=== PATIENT | female | born 1945 | race Caucasian/White ===

== ENCOUNTER 2025-05-06 13:19 | Observation (INO) | payer MEDICARE, SELFPAY ==
--- NOTE | ~2025-05-06 | XR_ITS ---
EXAMINATION: XR chest 2V Exam Date/Time: 05/06/2025 14:00 CDT HISTORY: chest pain Comparison: 04/05/2018. RESULT: Lines, tubes, and devices: Left chest pacer with intact leads. Lungs and pleura: Clear. Cardiomediastinal silhouette: Stable. Other: No acute osseous or upper abdominal finding. IMPRESSION: No acute cardiopulmonary process. Reviewed, dictated and finalized at location K.
--- NOTE | 2025-05-06 13:20 | ECG_ITS ---
Test Date: 2025-05-06 13:23:33 Measurements Intervals [place] Rate: 62 P: 40 CA: 150 QRS: -68 QRSD: 131 T: 132 QT: 443 QTc: 452 Interpretive Statements ATRIAL SENSE- ELECTRONIC VENTRICULAR PACEMAKER BASELINE ARTIFACT- I, II, AVR, AVF NO FURTHER INTERPRETATION IS POSSIBLE ATYPICAL ECG No previous ECG available for comparison Electronically Signed On 05-06-2025 16:21:47 CDT by Zachariah Jurado D.O.
--- OUTSIDE RECORDS SUMMARY | 2025-05-06 13:21 | XMS_ITS | Encounter Summary ---
Author Organization [facility] Facility Care Team Providers Care Counter Dish Carrier Name Role Phone Deshawn Mariano MD Primary Care Provider [phone] Encounter Details Date Type Department Care Team (Latest Contact Info) Description 08/12/2017 Orders Only [facility] CLINCONV ProviderSang MD [address] [place] [address] Social History Tobacco Use Types Packs/Day Years Used Date Smoking Tobacco: Former Cigarettes Q uit: 10/04/1971 Alcohol Use Standard Drinks/Week Comments Yes 0 (1 standard drink = 0.6 oz pur e alcohol) Comments Unknown Sex and Gender Information Value Date Recorded Sex Assigned at Not on file Legal Sex Female 9:53 AM MEDICAL RECORDS DIRECTOR Gender Identity Not on file Sexual Orientation Not on file documented as of this encounter Plan of Treatment Not on file documented as of this encounter Procedures Procedure Name Priority Date/Time Associated Diagnosis Comments CARDIOLOGY REPORT 01/21/2018 12: 00 AM CDT documented in this encounter Results * CARDIOLOGY REPORT (01/21/2018 12:00 AM CDT) Anatomical Region Laterality Modality Other Narrative 01/21/2018 12:00 AM CDT Ordered by an unspecified provider. Historical Provider [facility] ROSEMARY OLIVARES Final Result documented in this encounter Visit Diagnoses Not on filedocumented in this encounter Care Teams Counter Dish Carrier Relationship Specialty Start Date End Date Deshawn Mariano MD PCP - General 01/01/17 documented as of this encounter
--- OUTSIDE RECORDS SUMMARY | 2025-05-06 13:21 | XMS_ITS | Encounter Summary ---
Author Organization [facility] Facility Care Team Providers Care Nurses' Association Executive Director Name Role Phone Deshawn Mariano MD Primary Care Provider [phone] Deshawn Mariano MD Primary Care Provider [phone] Encounter Details Date Type Department Care Team (Latest Contact Info) Description 08/12/2016 Orders Only [facility] CLINCONV ProviderSang MD [address] [place] [address] Social History Tobacco Use Types Packs/Day Years Used Date Smoking Tobacco: Former Cigarettes Q uit: 10/04/1971 Alcohol Use Standard Drinks/Week Comments Yes 0 (1 standard drink = 0.6 oz pur e alcohol) Comments Unknown Sex and Gender Information Value Date Recorded Sex Assigned at Not on file Legal Sex Female 9:53 AM ELEMENTARY SCHOOL BAND DIRECTOR Gender Identity Not on file Sexual Orientation Not on file documented as of this encounter Plan of Treatment Not on file documented as of this encounter Procedures Procedure Name Priority Date/Time Associated Diagnosis Comments CARDIOLOGY REPORT 09/04/2016 12: 00 AM ELEMENTARY SCHOOL BAND DIRECTOR documented in this encounter Results * CARDIOLOGY REPORT (09/04/2016 12:00 AM ELEMENTARY SCHOOL BAND DIRECTOR) Anatomical Region Laterality Modality Other Narrative 09/04/2016 12:00 AM ELEMENTARY SCHOOL BAND DIRECTOR Ordered by an unspecified provider. Historical Provider [facility] ROSEMARY OLIVARES Final Result documented in this encounter Visit Diagnoses Not on filedocumented in this encounter Care Teams Nurses' Association Executive Director Relationship Specialty Start Date End Date Deshawn Mariano MD PCP - General 01/01/17 Deshawn Mariano MD PCP - General 05/30/13 12/31/16 documented as of this encounter
--- OUTSIDE RECORDS SUMMARY | 2025-05-06 13:21 | XMS_ITS | Encounter Summary ---
Author Organization [facility] Facility Care Team Providers Care Pulp Press Tender Name Role Phone Deshawn Mariano MD Primary Care Provider Encounter Details Date Type Department Care Team (Latest Contact Info) Description 04/05/2018 Orders Only [facility] CLINCONV ProviderSang MD [address] [place] [address] Social History Tobacco Use Types Packs/Day Years Used Date Smoking Tobacco: Former Cigarettes Q uit: 10/04/1971 Alcohol Use Standard Drinks/Week Comments Yes 0 (1 standard drink = 0.6 oz pur e alcohol) Comments Unknown Sex and Gender Information Value Date Recorded Sex Assigned at Not on file Legal Sex Female 9:53 AM MAINTENANCE SUPERVISOR MECHANICAL Gender Identity Not on file Sexual Orientation Not on file documented as of this encounter Plan of Treatment Not on file documented as of this encounter Procedures Procedure Name Priority Date/Time Associated Diagnosis Comments CARDIOLOGY REPORT 04/07/2018 12: 00 AM CDT documented in this encounter Results * CARDIOLOGY REPORT (04/07/2018 12:00 AM CDT) Anatomical Region Laterality Modality Other Narrative 04/07/2018 12:00 AM CDT Ordered by an unspecified provider. Historical Provider [facility] ROSEMARY OLIVARES Final Result documented in this encounter Visit Diagnoses Not on filedocumented in this encounter Care Teams Pulp Press Tender Relationship Specialty Start Date End Date Deshawn Mariano MD PCP - General 01/01/17 documented as of this encounter
--- OUTSIDE RECORDS SUMMARY | 2025-05-06 13:21 | XMS_ITS | Encounter Summary ---
Author Organization [facility] Facility Care Team Providers Care Cooker Operator Name Role Phone Deshawn Mariano MD Primary Care Provider Encounter Details Date Type Department Care Team (Latest Contact Info) Description 07/22/2017 Orders Only [facility] CLINCONV ProviderSang MD [address] [place] [address] Social History Tobacco Use Types Packs/Day Years Used Date Smoking Tobacco: Former Cigarettes Q uit: 10/04/1971 Alcohol Use Standard Drinks/Week Comments Yes 0 (1 standard drink = 0.6 oz pur e alcohol) Comments Unknown Sex and Gender Information Value Date Recorded Sex Assigned at Not on file Legal Sex Female 9:53 AM MARINE RIGGER Gender Identity Not on file Sexual Orientation Not on file documented as of this encounter Plan of Treatment Not on file documented as of this encounter Procedures Procedure Name Priority Date/Time Associated Diagnosis Comments CARDIOLOGY REPORT 07/22/2017 12: 00 AM CDT documented in this encounter Results * CARDIOLOGY REPORT (07/22/2017 12:00 AM CDT) Anatomical Region Laterality Modality Other Narrative 07/22/2017 12:00 AM CDT Ordered by an unspecified provider. Historical Provider [facility] ROSEMARY OLIVARES Final Result documented in this encounter Visit Diagnoses Not on filedocumented in this encounter Care Teams Cooker Operator Relationship Specialty Start Date End Date Deshawn Mariano MD PCP - General 01/01/17 documented as of this encounter
--- OUTSIDE RECORDS SUMMARY | 2025-05-06 13:21 | XMS_ITS | Clinical Summary ---
Author Organization [facility] at the [facility] Office Center Address [address] [place] [address] Care Team Providers Care Wood Flour Miller Name Role Phone Deshawn Mariano MD Primary Care Provider [phone] Allergies No known active allergies Medications levothyroxine (SYNTHROID) 50 mcg tablet take 1 tablet (50MCG) by oral route every day 0 01/12/2013 Active cholecalciferol (VITAMIN D-3) 2,000 unit tablet 1 tablet (2,000 Units total) daily Active rosuvastatin (CRESTOR) 40 mg tablet Take 1 tablet (40 mg total) by mouth Active aspirin 81 mg enteric coated tablet TAKE 1 TABLET BY MOUTH EVERY DAY 90 tablet 3 05/25/2022 Active carvediloL (COREG) 6.25 mg tabletIndication s:Chronic combined systolic and diastolic congestive heart failure (HCC) Take 1 tablet (6.25 mg total) by mouth 2 (two) times a day with meals 90 tablet 3 02/17/2024 Active empagliflozin (Jardiance) 10 mg tablet Take 1 tablet (10 mg total) by mouth daily 90 tablet 1 02/17/2024 Active furosemide (LASIX) 20 mg tabletIndication s:AV block, 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) Take 1 tablet (20 mg total) by mouth daily as needed (edema) 30 tablet 02/17/2024 Active Entresto 97-103 mg tablet TAKE 1 TABLET BY MOUTH TWICE DAILY 180 tablet 1 03/02/2024 Active Active Problems Problem Noted Date Diagnosed Date CKD (chronic kidney disease) stage 3, GFR 30-59 ml/min 02/17/2024 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 Patient thinks probably was taking in more salt around [place]. Will get recent labs Assessment & Plan (12/14/2019 3:43 PM CDT): Continue Lasix 20 mg daily Assessment & Plan (02/02/2019 1:52 PM CDT): Trace pedal edema. She can take Lasix daily till better OptiVol checked her device shows no significant pulmonary edema. Strongly encouraged dieting and weight loss Cardiac resynchronization th erapy pacemaker (BUSINESS APPLICATIONS MANAGER-P) in place 09/16/2016 Assessment & Plan (12/12/2020 1:16 PM GENERAL UTILITY WORKER): Check today shows normal function underlying rhythm sinus complete AV block no a pacing 100% V paced excellent lead function. Battery 2 years. Assessment & Plan (12/14/2019 3:42 PM CDT): Check today shows normal function. Underlying rhythm is sinus complete AV block. No a pacing 100% V paced. Excellent lead function. Battery 2 years. No arrhythmias. Assessment & Plan (02/02/2019 1:46 PM CDT): Check today shows normal function. Sinus with complete heart block no a pacing 100% V paced excellent lead function few short runs of nonsustained VT. Cardiomyopathy 08/18/2016 Assessment & Plan (12/14/2019 3:42 PM CDT): Improved with BUSINESS APPLICATIONS MANAGER. Continue Entresto. Assessment & Plan (02/02/2019 1:51 PM CDT): Resolved with BUSINESS APPLICATIONS MANAGER. Continue medications of Entresto and Lasix Double Entresto to approximately 50/ 50 mg AV block, 3rd degree 07/13/2016 Assessment & Plan (12/14/2019 3:42 PM CDT): BUSINESS APPLICATIONS MANAGER since 2015 Assessment & Plan (02/02/2019 1:45 PM CDT): Medtronic biventricular pacemaker placed September 2016 Notalgia 02/16/2014 Arthralgia of hip 02/16/2014 Resolved Problems Problem Noted Date Diagnosed Date Resolved Date Paroxysmal ventricular tachycardia 12/12/2020 06/24/2023 Assessment & Plan (12/12/2020 1:23 PM GENERAL UTILITY WORKER): Symptomatic short. EF improved. Check recent labs Afib ([facility]) 07/13/2016 07/03/2021 Assessment & Plan (12/12/2020 1:21 PM GENERAL UTILITY WORKER): No episodes. No indication for antiarrhythmics Assessment & Plan (12/14/2019 3:42 PM CDT): No episodes. No indication for antiarrhythmics or anticoagulants. Immunizations Immunization Administration Dates Next Due Pfizer SARS-CoV-2 Monovalent Vaccination (12+ Yrs) PURPLE 07/10/2021,11/18/2020,10/28/2020 Surgical History Surgery Date Site/Laterality Comments [place] ARTHRP ACETBLR/PROX FEM PROSTC AGRFT/ALGRFT Total Hip Replacement Left - (Added by TW Conv) CARDIAC PACEMAKER PLACEMENT Pacemaker Placement - (Added by TW Conv) Medical History Medical History Date Comments A-fib ([facility]) AV block, 3rd degree ([facility]) Cardiac pacemaker BiV CHF (congestive heart failure) ([facility]) Family History Medical History Relation Name Comments Cancer Father Jumper Family history of malignant neoplasm - (Added by TW Conv) Coronary artery disease Mother Klaus Jones nargrace Artery Bypass Graft; Heart attack Mother Klaus Myocardial Infa rction; Relation Name Status Comments Father Loraineer Mother Klaus Alive Social History Tobacco Use Types Packs/Day Years Used Date Smoking Tobacco: Former Cigarettes Q uit: 10/04/1971 Smokeless Tobacco: Never Tobacco Cessation:Counseling Given: Not Answered Alcohol Use Standard Drinks/Week Comments Yes 0 (1 standard drink = 0.6 oz pur e alcohol) AUDIT-C Answer Date Recorded Q1: How often do you have a drink containing alc ohol? 2-4 times a month 03/16/2023 Q2: How many drinks containi ng alcohol do you have on a typical day when you are drinking? 1 or 2 03/16/2023 Q3: How often do you have si x or more drinks on one occasion? Never 03/16/2023 Personal Safety Answer Date Recorded Have you ever been in or are you currently in a harmful physical or emotional relationship or is someone making you feel afraid or unsafe? Denies 03/16/2023 Comments Unknown Sex and Gender Information Value Date Recorded Sex Assigned at Not on file Legal Sex Female 9:53 AM GENERAL UTILITY WORKER Gender Identity Not on file Sexual Orientation Not on file Obstetrics History Last Filed Vital Signs Vital Sign Reading Time Taken Comments Blood Pressure 110/70 06/29/2024 12:36 PM CDT Pulse 59 06/29/2024 12:36 PM CDT Temperature 36.5 C (97.7 F) 02/23/2022 1:54 PM CDT Respiratory Rate 14 03/16/2023 9:00 AM CDT Oxygen Saturation 98% 06/29/2024 12: 36 PM CDT Inhaled Oxygen Concentration - - Weight 85.7 kg (188 lb 14.4 oz) 024 12:36 PM CDT Height 170.2 cm (5' 7) 06/24/2023 12:4 0 PM CDT Body Mass Index 29.59 06/24/2023 12:40 PM CDT Plan of Treatment Health Maintenance Due Date Last Done Comments Depression Screening 1945 Hepatitis C Screening 1945 Osteoporosis Screening-Bone Density Scan 1945 DTaP/Tdap/Td Vaccine (1 - Tdap) 1958 Hepatitis B Screening 1965 Zoster Vaccine (1 of 2) 1997 Well Visit 65+ 2012 Pneumococcal vaccine 65+ (2 of 2 - PCV) 09/09/2017 09/09/2016 Fall Risk Assessment 03/16/2024 03/16/2023 Covid-19 Vaccine ( season) 2024 07/10/2021, 11/18/2020, 10/28/2020 Influenza Vaccine (#1) 2025 07/02/2020 Medical Devices Implanted Type Area Subassembler Device Identifier Shelf Expiration Date Model / Serial / Lot Retana Vascular Perclose 6fr Vascular Closure [id number] - [id number] Implanted:Qty: 1 on 04/23/2022 by Yossi Joya MD at [facility] Retana Vascular 01/02/2024 [id number] / / [id number] Medtronic Inc Pacemaker Organizational Effectiveness Director P Mri Compatible Solara Surescan 11x46.5x59mm [id number] - [id number] Implanted:Qty: 1 on 03/16/2023 by Dillon Cartagena MD at [facility] Medtronic Inc [id number] / / Insurance [employer] MEDICARE AETNA MEDICARE Advance Directives For more information, please contact: [phone] * Full Code (Latest Code Status on File) Date Activated Date Inactivated Comments 04/23/2022 9:49 AM 04/23/2022 3:17 PM Care Teams Wood Flour Miller Relationship Specialty Start Date End Date Deshawn Mariano MD PCP - General 01/01/17
--- OUTSIDE RECORDS SUMMARY | 2025-05-06 13:21 | XMS_ITS | Encounter Summary ---
Author Organization [facility] Facility Care Team Providers Care Hand Hardener Name Role Phone Deshawn Mariano MD Primary Care Provider [phone] Encounter Details Date Type Department Care Team (Latest Contact Info) Description 10/25/2017 Orders Only [facility] CLINCONV ProviderSang MD [address] [place] [address] Social History Tobacco Use Types Packs/Day Years Used Date Smoking Tobacco: Former Cigarettes Q uit: 10/04/1971 Alcohol Use Standard Drinks/Week Comments Yes 0 (1 standard drink = 0.6 oz pur e alcohol) Comments Unknown Sex and Gender Information Value Date Recorded Sex Assigned at Not on file Legal Sex Female 9:53 AM HAND FUNNEL COATER Gender Identity Not on file Sexual Orientation Not on file documented as of this encounter Plan of Treatment Not on file documented as of this encounter Procedures Procedure Name Priority Date/Time Associated Diagnosis Comments CARDIOLOGY REPORT 10/25/2017 12: 00 AM HAND FUNNEL COATER documented in this encounter Results * CARDIOLOGY REPORT (10/25/2017 12:00 AM HAND FUNNEL COATER) Anatomical Region Laterality Modality Other Narrative 10/25/2017 12:00 AM HAND FUNNEL COATER Ordered by an unspecified provider. Historical Provider [facility] ROSEMARY OLIVARES Final Result documented in this encounter Visit Diagnoses Not on filedocumented in this encounter Care Teams Hand Hardener Relationship Specialty Start Date End Date Deshawn Mariano MD PCP - General 01/01/17 documented as of this encounter
--- OUTSIDE RECORDS SUMMARY | 2025-05-06 13:21 | XMS_ITS | Referral Summary ---
Author Organization [facility] Center Address [address] [place] [address] Care Team Providers Care Travel Insurance Agent Name Role Phone Deshawn Mariano MD Primary Care Provider [phone] Allergies No known active allergies Medications levothyroxine [...] artery disease of n ative artery of pamunkey heart with stable angina pectoris 06/01/2022 SERRANO (dyspnea on exertion) 04/16/2022 Abnormal stress test 04/16/2022 Morbid obesity 02/02/2019 Assessment & Plan (12/12/2020 1:22 PM IT SECURITY ARCHITECT): Encouraged dieting Assessment & Plan (02/02/2019 1:53 PM CDT): Recommend dieting and weight loss Congestive heart failure 07/22/2017 Assessment & Plan (12/12/2020 1:22 PM IT SECURITY ARCHITECT): OptiVol up September and October has been good for the last 6 weeks. Patient thinks probably was taking in more salt around [place]. Will get recent labs Assessment & Plan (12/14/2019 3:43 PM CDT): Continue Lasix 20 mg daily Assessment & Plan (02/02/2019 1:52 PM CDT): Trace pedal edema. She can take Lasix daily till better OptiVol checked her device shows no significant pulmonary edema. Strongly encouraged dieting and weight loss Cardiac resynchronization th erapy pacemaker (INSURANCE ACCOUNT EXECUTIVE-P) in place 09/16/2016 Assessment & Plan (12/12/2020 1:16 PM IT SECURITY ARCHITECT): Check today shows normal function underlying rhythm [...] Plan (12/14/2019 3:42 PM CDT): Improved with INSURANCE ACCOUNT EXECUTIVE. Continue Entresto. Assessment & Plan (02/02/2019 1:51 PM CDT): Resolved with INSURANCE ACCOUNT EXECUTIVE. Continue medications of Entresto and Lasix Double Entresto to approximately 50/ 50 mg AV block, 3rd degree 07/13/2016 Assessment & Plan (12/14/2019 3:42 PM CDT): INSURANCE ACCOUNT EXECUTIVE since 2015 Assessment & Plan (02/02/2019 1:45 PM CDT): Medtronic biventricular pacemaker placed September 2016 Notalgia 02/16/2014 Arthralgia of hip 02/16/2014 Resolved Problems Problem Noted Date Diagnosed Date Resolved Date Paroxysmal ventricular tachycardia 12/12/2020 06/24/2023 Assessment & Plan (12/12/2020 1:23 PM IT SECURITY ARCHITECT): Symptomatic short. EF improved. Check recent labs Afib ([facility]) 07/13/2016 07/03/2021 Assessment & Plan (12/12/2020 1:21 PM IT SECURITY ARCHITECT): No episodes. No indication for antiarrhythmics Assessment & Plan (12/14/2019 3:42 PM CDT): No episodes. No indication for antiarrhythmics or anticoagulants. Immunizations Immunization Administration Dates Next Due [employer] SARS-CoV-2 Monovalent Vaccination (12+ Yrs) PURPLE 07/10/2021,11/18/2020,10/28/2020 Social History Tobacco Use Types Packs/Day Years [...] on file Legal Sex Female 9:53 AM IT SECURITY ARCHITECT Gender Identity Not on file Sexual Orientation Not on file Last Filed Vital Signs Vital Sign Reading [...] 06/24/2023 12:40 PM CDT Plan of Treatment Not on file Medical Devices Implanted Type Area Mold Stacker Device Identifier Shelf Expiration Date Model / Serial / Lot Retana Vascular Perclose 6fr Vascular Closure [id number] - [id number] Implanted:Qty: 1 on 04/23/2022 by Yossi Joya MD at [facility] Retana Vascular 01/02/2024 [id number] / / [id number] Medtronic Inc Pacemaker Service Mechanic P Mri Compatible Solara Surescan 11x46.5x59mm [id number] - [id number] Implanted:Qty: 1 on 03/16/2023 by Dillon Cartagena MD at [facility] [employer] [id number] / / Insurance [facility] MEDICARE AETNA MEDICARE Advance Directives For more information, please contact: [phone] * Full Code (Latest Code Status on File) Date Activated Date Inactivated Comments 04/23/2022 9:49 AM 04/23/2022 3:17 PM Care Teams Travel Insurance Agent Relationship Specialty Start Date End Date Deshawn Mariano MD PCP - General 01/01/17
--- OUTSIDE RECORDS SUMMARY | 2025-05-06 13:21 | XMS_ITS | Encounter Summary ---
Author Organization [facility] Facility Care Team Providers Care Electric Power Machine Operator Name Role Phone Deshawn Mariano MD Primary Care Provider [phone] Deshawn Mariano MD Primary Care Provider [phone] Encounter Details Date Type Department Care Team (Latest Contact Info) Description 07/13/2016 Orders Only [facility] CLINCONV ProviderSang MD [address] [place] [address] Social History Tobacco Use Types Packs/Day Years Used Date Smoking Tobacco: Former Cigarettes Q uit: 10/04/1971 Alcohol Use Standard Drinks/Week Comments Yes 0 (1 standard drink = 0.6 oz pur e alcohol) Comments Unknown Sex and Gender Information Value Date Recorded Sex Assigned at Not on file Legal Sex Female 9:53 AM PROGRAM CONTROL ANALYST Gender Identity Not on file Sexual Orientation Not on file documented as of this encounter Plan of Treatment Not on file documented as of this encounter Procedures Procedure Name Priority Date/Time Associated Diagnosis Comments CARDIOLOGY REPORT 07/14/2016 12: 00 AM CDT CARDIOLOGY REPORT 07/13/2016 12: 00 AM CDT documented in this encounter Results * CARDIOLOGY REPORT (07/14/2016 12:00 AM CDT) Anatomical Region Laterality Modality Other Narrative 07/14/2016 12:00 AM CDT Ordered by an unspecified provider. us Historical Provider CV CARDIAC SERVICES PROCE DURES Final Result * CARDIOLOGY REPORT (07/13/2016 12:00 AM CDT) Anatomical Region Laterality Modality Other Narrative 07/13/2016 12:00 AM CDT Ordered by an unspecified provider. us Historical Provider CV CARDIAC SERVICES PROCE DURES Final Result documented in this encounter Visit Diagnoses Not on filedocumented in this encounter Care Teams Electric Power Machine Operator Relationship Specialty Start Date End Date Deshawn Mariano MD PCP - General 01/01/17 Deshawn Mariano MD PCP - General 05/30/13 12/31/16 documented as of this encounter
--- OUTSIDE RECORDS SUMMARY | 2025-05-06 13:21 | XMS_ITS | Encounter Summary ---
Author Organization [facility] Facility Care Team Providers Care Cook Specialty Name Role Phone Deshawn Mariano MD Primary Care Provider [phone] Encounter Details Date Type Department Care Team (Latest Contact Info) Description 08/04/2018 Orders Only [facility]G CLINCONV ProviderSang MD [address] [place] [address] Social History Tobacco Use Types Packs/Day Years Used Date Smoking Tobacco: Former Cigarettes Q uit: 10/04/1971 Alcohol Use Standard Drinks/Week Comments Yes 0 (1 standard drink = 0.6 oz pur e alcohol) Comments Unknown Sex and Gender Information Value Date Recorded Sex Assigned at Not on file Legal Sex Female 9:53 AM TECHNICAL SYSTEMS ARCHITECT Gender Identity Not on file Sexual Orientation Not on file documented as of this encounter Plan of Treatment Not on file documented as of this encounter Procedures Procedure Name Priority Date/Time Associated Diagnosis Comments CARDIOLOGY REPORT 08/04/2018 12: 00 AM CDT documented in this encounter Results * CARDIOLOGY REPORT (08/04/2018 12:00 AM CDT) Anatomical Region Laterality Modality Other Narrative 08/04/2018 12:00 AM CDT Ordered by an unspecified provider. Historical Provider CV CARDIAC SERVICES ROSEMARY OLIVARES Final Result documented in this encounter Visit Diagnoses Not on filedocumented in this encounter Care Teams Cook Specialty Relationship Specialty Start Date End Date Deshawn Mariano MD PCP - General 01/01/17 documented as of this encounter
--- OUTSIDE RECORDS SUMMARY | 2025-05-06 13:21 | XMS_ITS | Encounter Summary ---
Author Organization [facility] Facility Care Team Providers Care Pipe Machine Operator Name Role Phone Deshawn Mariano MD Primary Care Provider Encounter Details Date Type Department Care Team (Latest Contact Info) Description 01/14/2017 Orders Only [facility] CLINCONV ProviderSang MD [address] [place] [address] Social History Tobacco Use Types Packs/Day Years Used Date Smoking Tobacco: Former Cigarettes Q uit: 10/04/1971 Alcohol Use Standard Drinks/Week Comments Yes 0 (1 standard drink = 0.6 oz pur e alcohol) Comments Unknown Sex and Gender Information Value Date Recorded Sex Assigned at Not on file Legal Sex Female 9:53 AM MOBILE APPLICATION DEVELOPMENT LEAD Gender Identity Not on file Sexual Orientation Not on file documented as of this encounter Plan of Treatment Not on file documented as of this encounter Procedures Procedure Name Priority Date/Time Associated Diagnosis Comments CARDIOLOGY REPORT 01/14/2017 12: 00 AM CDT documented in this encounter Results * CARDIOLOGY REPORT (01/14/2017 12:00 AM CDT) Anatomical Region Laterality Modality Other Narrative 01/14/2017 12:00 AM CDT Ordered by an unspecified provider. Historical Provider [facility] CARDIAC SERVICES ROSEMARY OLIVARES Final Result documented in this encounter Visit Diagnoses Not on filedocumented in this encounter Care Teams Pipe Machine Operator Relationship Specialty Start Date End Date Deshawn Mariano MD PCP - General 01/01/17 documented as of this encounter
--- OUTSIDE RECORDS SUMMARY | 2025-05-06 13:21 | XMS_ITS | Encounter Summary ---
Author Organization [facility] Facility Care Team Providers Care Chimney Builder Brick Name Role Phone Deshawn Mariano MD Primary Care Provider [phone] Encounter Details Date Type Department Care Team (Latest Contact Info) Description 04/07/2018 Orders Only [facility] CLINCONV ProviderSang MD [address] [place] [address] Social History Tobacco Use Types Packs/Day Years Used Date Smoking Tobacco: Former Cigarettes Q uit: 10/04/1971 Alcohol Use Standard Drinks/Week Comments Yes 0 (1 standard drink = 0.6 oz pur e alcohol) Comments Unknown Sex and Gender Information Value Date Recorded Sex Assigned at Not on file Legal Sex Female 9:53 AM FASHION MARKETER Gender Identity Not on file Sexual Orientation Not on file documented as of this encounter Plan of Treatment Not on file documented as of this encounter Procedures Procedure Name Priority Date/Time Associated Diagnosis Comments PROCEDURE - RESULT 04/07/2018 12 :00 AM CDT documented in this encounter Results * PROCEDURE - RESULT (04/07/2018 12:00 AM CDT) Narrative 04/07/2018 12:00 AM CDT Ordered by an unspecified provider. Historical Provider Final Res ult documented in this encounter Visit Diagnoses Not on filedocumented in this encounter Care Teams Chimney Builder Brick Relationship Specialty Start Date End Date Deshawn Mariano MD PCP - General 01/01/17 documented as of this encounter
--- OUTSIDE RECORDS SUMMARY | 2025-05-06 13:21 | XMS_ITS | Encounter Summary ---
Author Organization [facility] Facility Care Team Providers Care Tradeshow Worker Name Role Phone Deshawn Mariano MD Primary Care Provider [phone] Encounter Details Date Type Department Care Team (Latest Contact Info) Description 01/27/2018 Orders Only [facility] CLINCONV ProviderSang MD [address] [place] [address] Social History Tobacco Use Types Packs/Day Years Used Date Smoking Tobacco: Former Cigarettes Q uit: 10/04/1971 Alcohol Use Standard Drinks/Week Comments Yes 0 (1 standard drink = 0.6 oz pur e alcohol) Comments Unknown Sex and Gender Information Value Date Recorded Sex Assigned at Not on file Legal Sex Female 9:53 AM BULL RIVETER Gender Identity Not on file Sexual Orientation Not on file documented as of this encounter Plan of Treatment Not on file documented as of this encounter Procedures Procedure Name Priority Date/Time Associated Diagnosis Comments CARDIOLOGY REPORT 01/27/2018 12: 00 AM CDT documented in this encounter Results * CARDIOLOGY REPORT (01/27/2018 12:00 AM CDT) Anatomical Region Laterality Modality Other Narrative 01/27/2018 12:00 AM CDT Ordered by an unspecified provider. Historical Provider CV CARDIAC SERVICES ROSEMARY OLIVARES Final Result documented in this encounter Visit Diagnoses Not on filedocumented in this encounter Care Teams Tradeshow Worker Relationship Specialty Start Date End Date Deshawn Mariano MD PCP - General 01/01/17 documented as of this encounter
--- OUTSIDE RECORDS SUMMARY | 2025-05-06 13:21 | XMS_ITS | Encounter Summary ---
Author Organization [facility] Facility Care Team Providers Care Data Entry Clerk Name Role Phone Deshawn Mariano MD Primary Care Provider [phone] Encounter Details Date Type Department Care Team (Latest Contact Info) Description 08/20/2017 Orders Only [facility] CLINCONV ProviderSang MD [address] [place] [address] Social History Tobacco Use Types Packs/Day Years Used Date Smoking Tobacco: Former Cigarettes Q uit: 10/04/1971 Alcohol Use Standard Drinks/Week Comments Yes 0 (1 standard drink = 0.6 oz pur e alcohol) Comments Unknown Sex and Gender Information Value Date Recorded Sex Assigned at Not on file Legal Sex Female 9:53 AM COMMERCIAL PAINTER Gender Identity Not on file Sexual Orientation Not on file documented as of this encounter Plan of Treatment Not on file documented as of this encounter Procedures Procedure Name Priority Date/Time Associated Diagnosis Comments SCAN - LABS 08/20/2017 12:00 AM COMMERCIAL PAINTER documented in this encounter Results * SCAN - LABS (08/20/2017 12:00 AM COMMERCIAL PAINTER) Narrative 08/20/2017 12:00 AM COMMERCIAL PAINTER Ordered by an unspecified provider. Historical Provider Final Res ult documented in this encounter Visit Diagnoses Not on filedocumented in this encounter Care Teams Data Entry Clerk Relationship Specialty Start Date End Date Deshawn Mariano MD PCP - General 01/01/17 documented as of this encounter
--- OUTSIDE RECORDS SUMMARY | 2025-05-06 13:21 | XMS_ITS | Encounter Summary ---
Author Organization [facility] Facility Care Team Providers Care Pattern Technician Name Role Phone Deshawn Mariano MD Primary Care Provider [phone] Deshawn Mariano MD Primary Care Provider [phone] Encounter Details Date Type Department Care Team (Latest Contact Info) Description 09/09/2016 Orders Only [facility] CLINCONV ProviderSang MD [address] [place] [address] Social History Tobacco Use Types Packs/Day Years Used Date Smoking Tobacco: Former Cigarettes Q uit: 10/04/1971 Alcohol Use Standard Drinks/Week Comments Yes 0 (1 standard drink = 0.6 oz pur e alcohol) Comments Unknown Sex and Gender Information Value Date Recorded Sex Assigned at Not on file Legal Sex Female 9:53 AM SPINNING FRAME CLEANER Gender Identity Not on file Sexual Orientation Not on file documented as of this encounter Plan of Treatment Not on file documented as of this encounter Procedures Procedure Name Priority Date/Time Associated Diagnosis Comments CARDIOLOGY REPORT 09/09/2016 12: 00 AM SPINNING FRAME CLEANER CARDIOLOGY REPORT 09/04/2016 12: 00 AM SPINNING FRAME CLEANER documented in this encounter Results * CARDIOLOGY REPORT (09/09/2016 12:00 AM SPINNING FRAME CLEANER) Anatomical Region Laterality Modality Other Narrative 09/09/2016 12:00 AM SPINNING FRAME CLEANER Ordered by an unspecified provider. Historical Provider MD [facility] CARDIAC SERVICES PROCE DURES Final Result * CARDIOLOGY REPORT (09/04/2016 12:00 AM SPINNING FRAME CLEANER) Anatomical Region Laterality Modality Other Narrative 09/04/2016 12:00 AM SPINNING FRAME CLEANER Ordered by an unspecified provider. Historical Provider CV CARDIAC SERVICES PROCE DURES Final Result documented in this encounter Visit Diagnoses Not on filedocumented in this encounter Care Teams Pattern Technician Relationship Specialty Start Date End Date Deshawn Mariano MD PCP - General 01/01/17 Deshawn Mariano MD PCP - General 05/30/13 12/31/16 documented as of this encounter
[2025-05-06 13:26] VITALS: BP 173/75; PULSE 61; RESP 18; TEMP 36.2; O2SAT 100
[2025-05-06 13:35] LABS: Hematocrit 39.7 % (37.0-47.0); Hemoglobin 12.7 g/dL (12.0-15.0); Immature Granulocyte Percent A 0.5 % (0-0.5); Lymphocytes Absolute Auto 0.78 K/mm3 (0.9-3.2); Mean Corpuscular HGB Conc 32.0 g/dl (32-36); Mean Corpuscular Hemoglobin 32.8 pg (26-34); Mean Corpuscular Volume 102.6 fl (80-100); Nucleated Red Blood Cells Absolute Auto 0.000 K/mm3 (0.0-0.012); Nucleated Red Blood Cells Perc 0.0 % (0.0-0.2); Platelet Count Result 171 k/mm3 (150-375); Red Blood Count 3.87 M/mm3 (4.2-5.4); White Blood Count 4.1 K/mm3 (4.5-10.0)
[2025-05-06 13:47] LABS: INR 1.0; Prothrombin Time 13.7 Seconds (11.1-14.7)
[2025-05-06 13:48] LABS: Partial Thromboplastin Time 30.3 Seconds (22.3-36.8)
[2025-05-06 13:52] LABS: Alanine Aminotransferase 22 U/L (6-35); Albumin Level 4.1 g/dL (3.5-5.1); Alkaline Phosphatase 72 U/L (38-126); Anion Gap 6 mmol/L (4-12); Aspartate Amino Transferase 26 U/L (14-36); Bilirubin,Total 0.9 mg/dL (0.2-1.3); Blood Urea Nitrogen 15 mg/dL (7-17); Calcium 9.2 mg/dL (8.4-10.2); Carbon Dioxide 25 mmol/L (22-30); Chloride 109 mmol/L (98-107); Estimated CRCL calculation 39 ml/min; Estimated Glomerular Filt Rate 52; Glucose 103 mg/dL (65-110); Lipase 94 U/L (23-300); Potassium 4.1 mmol/L (3.4-5.0); Sodium 140 mmol/L (137-145); Total Protein 7.2 g/dL (6.3-8.2)
[2025-05-06 13:58] LABS: Troponin I < 0.012 ng/mL (0.000-0.034)
--- OUTSIDE RECORDS SUMMARY | 2025-05-06 15:46 | XMS_ITS | Encounter Summary ---
Author Organization [facility] Facility Care Team Providers Care Psychiatry Instructor Name Role Phone Deshawn Mariano MD Primary Care Provider [phone] Encounter Details Date Type Department Care Team (Latest Contact Info) Description 07/22/2017 Orders Only [facility] CLINCONV ProviderSang MD [address] [place] [address] Social History Tobacco Use Types Packs/Day Years Used Date Smoking Tobacco: Former Cigarettes Q uit: 10/04/1971 Alcohol Use Standard Drinks/Week Comments Yes 0 (1 standard drink = 0.6 oz pur e alcohol) Comments Unknown Sex and Gender Information Value Date Recorded Sex Assigned at Not on file Legal Sex Female 9:53 AM UNIT NURSE Gender Identity Not on file Sexual Orientation [...] on filedocumented in this encounter Care Teams Psychiatry Instructor Relationship Specialty Start Date End Date Deshawn Mariano MD PCP - General 01/01/17 documented as of this encounter
--- OUTSIDE RECORDS SUMMARY | 2025-05-06 15:46 | XMS_ITS | Referral Summary ---
Author Organization [facility] at the [facility] Office Center Address [address] [place] [address] Care Team Providers Care Crown And Bridge Technician Name Role Phone Deshawn Mariano MD Primary Care Provider [phone] Allergies No known active allergies Medications levothyroxine [...] artery disease of n ative artery of [place] heart with stable angina pectoris 06/01/2022 SERRANO (dyspnea on exertion) 04/16/2022 Abnormal stress test 04/16/2022 Morbid obesity 02/02/2019 Assessment & Plan (12/12/2020 1:22 PM RAILROAD CAR REPAIRMAN): Encouraged dieting Assessment & Plan (02/02/2019 1:53 PM CDT): Recommend dieting and weight loss Congestive heart failure 07/22/2017 Assessment & Plan (12/12/2020 1:22 PM RAILROAD CAR REPAIRMAN): OptiVol up September and October has been good for the last 6 weeks. Patient thinks probably was taking in more salt around [place]. Will get recent labs Assessment & Plan (12/14/2019 3:43 PM CDT): Continue Lasix 20 mg daily Assessment & Plan (02/02/2019 1:52 PM CDT): Trace pedal edema. She can take Lasix daily till better OptiVol checked her device shows no significant pulmonary edema. Strongly encouraged dieting and weight loss Cardiac resynchronization th erapy pacemaker (MEDICAL RECORDS SUPERVISOR-P) in place 09/16/2016 Assessment & Plan (12/12/2020 1:16 PM RAILROAD CAR REPAIRMAN): Check today shows normal function underlying rhythm [...] Plan (12/14/2019 3:42 PM CDT): Improved with MEDICAL RECORDS SUPERVISOR. Continue Entresto. Assessment & Plan (02/02/2019 1:51 PM CDT): Resolved with MEDICAL RECORDS SUPERVISOR. Continue medications of Entresto and Lasix Double Entresto to approximately 50/ 50 mg AV block, 3rd degree 07/13/2016 Assessment & Plan (12/14/2019 3:42 PM CDT): MEDICAL RECORDS SUPERVISOR since 2015 Assessment & Plan (02/02/2019 1:45 PM CDT): Medtronic biventricular pacemaker placed September 2016 Notalgia 02/16/2014 Arthralgia of hip 02/16/2014 Resolved Problems Problem Noted Date Diagnosed Date Resolved Date Paroxysmal ventricular tachycardia 12/12/2020 06/24/2023 Assessment & Plan (12/12/2020 1:23 PM RAILROAD CAR REPAIRMAN): Symptomatic short. EF improved. Check recent labs Afib ([facility]) 07/13/2016 07/03/2021 Assessment & Plan (12/12/2020 1:21 PM RAILROAD CAR REPAIRMAN): No episodes. No indication for antiarrhythmics Assessment & Plan (12/14/2019 3:42 PM CDT): No episodes. No indication for antiarrhythmics or anticoagulants. Immunizations Immunization Administration Dates Next Due XipLink SARS-CoV-2 Monovalent Vaccination (12+ Yrs) PURPLE 07/10/2021,11/18/2020,10/28/2020 [...] on file Legal Sex Female 9:53 AM RAILROAD CAR REPAIRMAN Gender Identity Not on file Sexual Orientation [...] on file Medical Devices Implanted Type Area Adult Education Teacher Device Identifier Shelf Expiration Date Model / Serial / Lot Retana Vascular Perclose 6fr Vascular Closure [id number] - [id number] Implanted:Qty: 1 on 04/23/2022 by Yossi Joya MD at [facility] Retana Vascular 01/02/2024 [id number] / / [id number] Medtronic Inc Pacemaker Termite Treater P Mri Compatible Solara Surescan 11x46.5x59mm [id number] - [id number] Implanted:Qty: 1 on 03/16/2023 by Dillon Cartagena MD at [facility] Medtronic Inc [id number] / / Insurance [facility] MEDICARE AETNA MEDICARE Advance Directives For more information, please contact: [phone] * Full Code (Latest Code Status on File) Date Activated Date Inactivated Comments 04/23/2022 9:49 AM 04/23/2022 3:17 PM Care Teams Crown And Bridge Technician Relationship Specialty Start Date End Date Deshawn Mariano MD PCP - General 01/01/17
--- OUTSIDE RECORDS SUMMARY | 2025-05-06 15:46 | XMS_ITS | Encounter Summary ---
Author Organization [facility] Facility Care Team Providers Care Supervisor Brooder Farm Name Role Phone Deshawn Mariano MD Primary Care Provider [phone] Encounter Details Date Type Department Care Team (Latest Contact Info) Description 01/14/2017 Orders Only [facility] CLINCONV ProviderSang MD [address] [place] [address] Social History Tobacco Use Types Packs/Day Years Used Date Smoking Tobacco: Former Cigarettes Q uit: 10/04/1971 Alcohol Use Standard Drinks/Week Comments Yes 0 (1 standard drink = 0.6 oz pur e alcohol) Comments Unknown Sex and Gender Information Value Date Recorded Sex Assigned at Not on file Legal Sex Female 9:53 AM CURTAIN CLEANER Gender Identity Not on file Sexual [...] on filedocumented in this encounter Care Teams Supervisor Brooder Farm Relationship Specialty Start Date End Date Deshawn Mariano MD PCP - General 01/01/17 documented as of this encounter
--- OUTSIDE RECORDS SUMMARY | 2025-05-06 15:46 | XMS_ITS | Encounter Summary ---
Author Organization [facility] Facility Care Team Providers Care Golf Tournament Consultant Name Role Phone Deshawn Mariano MD Primary Care Provider [phone] Deshawn Mariano MD Primary Care Provider [phone] Encounter Details Date Type Department Care Team (Latest Contact Info) Description 09/09/2016 Orders Only [facility] CLINCONV ProviderSang MD [address] [place] [address] Social History Tobacco Use Types Packs/Day Years Used Date Smoking Tobacco: Former Cigarettes Q uit: 10/04/1971 Alcohol Use Standard Drinks/Week Comments Yes 0 (1 standard drink = 0.6 oz pur e alcohol) Comments Unknown Sex and Gender Information Value Date Recorded Sex Assigned at Not on file Legal Sex Female 9:53 AM MARKETING ANALYTICS LEAD Gender Identity Not on file Sexual Orientation Not on file documented as of this encounter Plan of Treatment Not on file documented as of this encounter Procedures Procedure Name Priority Date/Time Associated Diagnosis Comments CARDIOLOGY REPORT 09/09/2016 12: 00 AM MARKETING ANALYTICS LEAD CARDIOLOGY REPORT 09/04/2016 12: 00 AM MARKETING ANALYTICS LEAD documented in this encounter Results * CARDIOLOGY REPORT (09/09/2016 12:00 AM MARKETING ANALYTICS LEAD) Anatomical Region Laterality Modality Other Narrative 09/09/2016 12:00 AM MARKETING ANALYTICS LEAD Ordered by an unspecified provider. Historical Provider MD CV CARDIAC SERVICES PROCE DURES Final Result * CARDIOLOGY REPORT (09/04/2016 12:00 AM MARKETING ANALYTICS LEAD) Anatomical Region Laterality Modality Other Narrative 09/04/2016 12:00 AM MARKETING ANALYTICS LEAD Ordered by an unspecified provider. Historical Provider CV CARDIAC SERVICES PROCE DURES Final Result documented in this encounter Visit Diagnoses Not on filedocumented in this encounter Care Teams Golf Tournament Consultant Relationship Specialty Start Date End Date Deshawn Mariano MD PCP - General 01/01/17 Deshawn Mariano MD PCP - General 05/30/13 12/31/16 documented as of this encounter
--- OUTSIDE RECORDS SUMMARY | 2025-05-06 15:46 | XMS_ITS | Clinical Summary ---
Author Organization [facility] at the [facility] Office Center Address [address] [place] [address] Care Team Providers Care Chicle Grinder Feeder Name Role Phone Deshawn Mariano MD Primary Care Provider [phone] Allergies No known active allergies Medications levothyroxine [...] artery disease of n ative artery of [place] heart with stable angina pectoris 06/01/2022 SERRANO (dyspnea on exertion) 04/16/2022 Abnormal stress test 04/16/2022 Morbid obesity 02/02/2019 Assessment & Plan (12/12/2020 1:22 PM SAP TECHNICAL ARCHITECT): Encouraged dieting Assessment & Plan (02/02/2019 1:53 PM CDT): Recommend dieting and weight loss Congestive heart failure 07/22/2017 Assessment & Plan (12/12/2020 1:22 PM SAP TECHNICAL ARCHITECT): OptiVol up September and October has been good for the last 6 weeks. Patient thinks probably was taking in more salt around [place]. Will get recent labs Assessment & Plan (12/14/2019 3:43 PM CDT): Continue Lasix 20 mg daily Assessment & Plan (02/02/2019 1:52 PM CDT): Trace pedal edema. She can take Lasix daily till better OptiVol checked her device shows no significant pulmonary edema. Strongly encouraged dieting and weight loss Cardiac resynchronization th erapy pacemaker (FORENSIC DOCUMENT EXAMINER-P) in place 09/16/2016 Assessment & Plan (12/12/2020 1:16 PM SAP TECHNICAL ARCHITECT): Check today shows normal function underlying [...] Plan (12/14/2019 3:42 PM CDT): Improved with FORENSIC DOCUMENT EXAMINER. Continue Entresto. Assessment & Plan (02/02/2019 1:51 PM CDT): Resolved with FORENSIC DOCUMENT EXAMINER. Continue medications of Entresto and Lasix Double Entresto to approximately 50/ 50 mg AV block, 3rd degree 07/13/2016 Assessment & Plan (12/14/2019 3:42 PM CDT): FORENSIC DOCUMENT EXAMINER since 2015 Assessment & Plan (02/02/2019 1:45 PM CDT): Medtronic biventricular pacemaker placed September 2016 Notalgia 02/16/2014 Arthralgia of hip 02/16/2014 Resolved Problems Problem Noted Date Diagnosed Date Resolved Date Paroxysmal ventricular tachycardia 12/12/2020 06/24/2023 Assessment & Plan (12/12/2020 1:23 PM SAP TECHNICAL ARCHITECT): Symptomatic short. EF improved. Check recent labs Afib ([facility]) 07/13/2016 07/03/2021 Assessment & Plan (12/12/2020 1:21 PM SAP TECHNICAL ARCHITECT): No episodes. No indication for antiarrhythmics Assessment & Plan (12/14/2019 3:42 PM CDT): No episodes. No indication for antiarrhythmics or anticoagulants. Immunizations Immunization Administration Dates Next Due Pfizer SARS-CoV-2 Monovalent Vaccination (12+ Yrs) PURPLE 07/10/2021,11/18/2020,10/28/2020 Surgical History Surgery Date Site/Laterality Comments [place] ARTHRP ACETBLR/PROX FEM PROSTC AGRFT/ALGRFT Total Hip Replacement Left - (Added by TW Conv) CARDIAC PACEMAKER PLACEMENT Pacemaker Placement - (Added by TW Conv) Medical History Medical History Date Comments A-fib ([facility]) AV block, 3rd degree ([facility]) Cardiac pacemaker BiV CHF (congestive heart failure) ([facility]) Family History Medical History Relation [...] on file Legal Sex Female 9:53 AM SAP TECHNICAL ARCHITECT Gender Identity Not on file Sexual [...] 2025 07/02/2020 Medical Devices Implanted Type Area Gsa Coordinator Device Identifier Shelf Expiration Date Model / Serial / Lot Retana Vascular Perclose 6fr Vascular Closure [id number] - [id number] Implanted:Qty: 1 on 04/23/2022 by Yossi Joya MD at [facility] Retana Vascular 01/02/2024 [id number] / / [id number] Medtronic Inc Pacemaker Director Facilities Maintenance P Mri Compatible Solara Surescan 11x46.5x59mm [id number] - [id number] Implanted:Qty: 1 on 03/16/2023 by Dillon Cartagena MD at [facility] Med[employer] [id number] / / Insurance [employer] MEDICARE AETNA MEDICARE Advance Directives For more information, please contact: [phone] * Full Code (Latest Code Status on File) Date Activated Date Inactivated Comments 04/23/2022 9:49 AM 04/23/2022 3:17 PM Care Teams Chicle Grinder Feeder Relationship Specialty Start Date End Date Deshawn Mariano MD PCP - General 01/01/17
--- OUTSIDE RECORDS SUMMARY | 2025-05-06 15:46 | XMS_ITS | Encounter Summary ---
Author Organization [facility] Facility Care Team Providers Care Flight Communications Officer Name Role Phone Deshawn Mariano MD Primary Care Provider [phone] Deshawn Mariano MD Primary Care Provider [phone] Encounter Details Date Type Department Care Team (Latest Contact Info) Description 08/12/2016 Orders Only [facility] CLINCONV ProviderSang MD [address] [place] [address] Social History Tobacco Use Types Packs/Day Years Used Date Smoking Tobacco: Former Cigarettes Q uit: 10/04/1971 Alcohol Use Standard Drinks/Week Comments Yes 0 (1 standard drink = 0.6 oz pur e alcohol) Comments Unknown Sex and Gender Information Value Date Recorded Sex Assigned at Not on file Legal Sex Female 9:53 AM SOUND TECHNICIAN Gender Identity Not on file Sexual Orientation Not on file documented as of this encounter Plan of Treatment Not on file documented as of this encounter Procedures Procedure Name Priority Date/Time Associated Diagnosis Comments CARDIOLOGY REPORT 09/04/2016 12: 00 AM SOUND TECHNICIAN documented in this encounter Results * CARDIOLOGY REPORT (09/04/2016 12:00 AM SOUND TECHNICIAN) Anatomical Region Laterality Modality Other Narrative 09/04/2016 12:00 AM SOUND TECHNICIAN Ordered by an unspecified provider. Historical Provider CV CARDIAC SERVICES ROSEMARY OLIVARES Final Result documented in this encounter Visit Diagnoses Not on filedocumented in this encounter Care Teams Flight Communications Officer Relationship Specialty Start Date End Date Deshawn Mariano MD PCP - General 01/01/17 Deshawn Mariano MD PCP - General 05/30/13 12/31/16 documented as of this encounter
--- OUTSIDE RECORDS SUMMARY | 2025-05-06 15:47 | XMS_ITS | Encounter Summary ---
Author Organization [facility] Facility Care Team Providers Care Hotel Assistant Manager Name Role Phone Deshawn Mariano MD Primary Care Provider Encounter Details Date Type Department Care Team (Latest Contact Info) Description 08/12/2017 Orders Only [facility] CLINCONV ProviderSang MD [address] [place] [address] Social History Tobacco Use Types Packs/Day Years Used Date Smoking Tobacco: Former Cigarettes Q uit: 10/04/1971 Alcohol Use Standard Drinks/Week Comments Yes 0 (1 standard drink = 0.6 oz pur e alcohol) Comments Unknown Sex and Gender Information Value Date Recorded Sex Assigned at Not on file Legal Sex Female 9:53 AM EDGE PLUGGER Gender Identity Not on file Sexual Orientation [...] on filedocumented in this encounter Care Teams Hotel Assistant Manager Relationship Specialty Start Date End Date Deshawn Mariano MD PCP - General 01/01/17 documented as of this encounter
--- OUTSIDE RECORDS SUMMARY | 2025-05-06 15:47 | XMS_ITS | Encounter Summary ---
Author Organization [facility] Care Team Providers Care Network Analyst Name Role Phone Deshawn Mariano MD Primary Care Provider [phone] Encounter Details Date Type Department Care Team (Latest Contact Info) Description 08/04/2018 Orders Only [facility] CLINCON[facility] ProviderSang MD [address] [place] [id number] Social History Tobacco Use Types Packs/Day Years Used Date Smoking Tobacco: Former Cigarettes Q uit: 10/04/1971 Alcohol Use Standard Drinks/Week Comments Yes 0 (1 standard drink = 0.6 oz pur e alcohol) Comments Unknown Sex and Gender Information Value Date Recorded Sex Assigned at Not on file Legal Sex Female 9:53 AM SHIPYARD PAINTING SUPERVISOR Gender Identity Not on file Sexual Orientation [...] on filedocumented in this encounter Care Teams Network Analyst Relationship Specialty Start Date End Date Deshwan Mariano MD PCP - General 01/01/17 documented as of this encounter
--- OUTSIDE RECORDS SUMMARY | 2025-05-06 15:47 | XMS_ITS | Encounter Summary ---
Author Organization [facility] Care Team Providers Care Rn Imaging Name Role Phone Deshawn Mariano MD Primary Care Provider [phone] Encounter Details Date Type Department Care Team (Latest Contact Info) Description 04/07/2018 Orders Only [facility] CLINCONV ProviderSang MD [address] [place] [id number] Social History Tobacco Use Types Packs/Day Years Used Date Smoking Tobacco: Former Cigarettes Q uit: 10/04/1971 Alcohol Use Standard Drinks/Week Comments Yes 0 (1 standard drink = 0.6 oz pur e alcohol) Comments Unknown Sex and Gender Information Value Date Recorded Sex Assigned at Not on file 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
--- OUTSIDE RECORDS SUMMARY | 2025-05-06 15:47 | XMS_ITS | Encounter Summary ---
Author Organization [facility] Care Team Providers Care Search Developer Name Role Phone Deshawn Mariano MD Primary Care Provider [phone] Encounter Details Date Type Department Care Team (Latest Contact Info) Description 08/20/2017 Orders Only [facility] CLINCONV ProviderSang MD [address] [place] [address] Social History Tobacco Use Types Packs/Day Years Used Date Smoking Tobacco: Former Cigarettes Q uit: 10/04/1971 Alcohol Use Standard Drinks/Week Comments Yes 0 (1 standard drink = 0.6 oz pur e alcohol) Comments Unknown Sex and Gender Information Value Date Recorded Sex Assigned at Not on file Legal Sex Female 9:53 AM FLARE MAN Gender Identity Not on file Sexual Orientation Not on file documented as of this encounter Plan of Treatment Not on file documented as of this encounter Procedures Procedure Name Priority Date/Time Associated Diagnosis Comments SCAN - LABS 08/20/2017 12:00 AM FLARE MAN documented in this encounter Results * SCAN - LABS (08/20/2017 12:00 AM FLARE MAN) Narrative 08/20/2017 12:00 AM FLARE MAN Ordered by an unspecified provider. Historical Provider Final Res ult documented in this encounter Visit Diagnoses Not on filedocumented in this encounter Care Teams Search Developer Relationship Specialty Start Date End Date Deshawn Mariano MD PCP - General 01/01/17 documented as of this encounter
--- OUTSIDE RECORDS SUMMARY | 2025-05-06 15:47 | XMS_ITS | Encounter Summary ---
Author Organization [facility] Care Team Providers Care Shampoo Technician Name Role Phone Deshawn Mariano MD Primary Care Provider [phone] Deshawn Mariano MD Primary Care Provider [phone] Encounter Details Date Type Department Care Team (Latest Contact Info) Description 07/13/2016 Orders Only [facility] CLINCONV ProviderSang MD [address] [place] [address] Social History Tobacco Use Types Packs/Day Years Used Date Smoking Tobacco: Former Cigarettes Q uit: 10/04/1971 Alcohol Use Standard Drinks/Week Comments Yes 0 (1 standard drink = 0.6 oz pur e alcohol) Comments Unknown Sex and Gender Information Value Date Recorded Sex Assigned at Not on file 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
--- OUTSIDE RECORDS SUMMARY | 2025-05-06 15:47 | XMS_ITS | Encounter Summary ---
Author Organization [facility] Care Team Providers Care Brim Pouncer Name Role Phone Deshawn Mariano MD Primary Care Provider Encounter Details Date Type Department Care Team (Latest Contact Info) Description 04/05/2018 Orders Only [facility] CLINCONV ProviderSang MD [address] [place] [address] Social History Tobacco Use Types Packs/Day Years Used Date Smoking Tobacco: Former Cigarettes Q uit: 10/04/1971 Alcohol Use Standard Drinks/Week Comments Yes 0 (1 standard drink = 0.6 oz pur e alcohol) Comments Unknown Sex and Gender Information Value Date Recorded Sex Assigned at Not on file 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
--- OUTSIDE RECORDS SUMMARY | 2025-05-06 15:47 | XMS_ITS | Encounter Summary ---
Author Organization [facility] Care Team Providers Care Hair Tinter Name Role Phone Deshawn Mariano MD Primary Care Provider [phone] Encounter Details Date Type Department Care Team (Latest Contact Info) Description 01/27/2018 Orders Only [facility] CLINCONV ProviderSang MD [address] [place] [address] Social History Tobacco Use Types Packs/Day Years Used Date Smoking Tobacco: Former Cigarettes Q uit: 10/04/1971 Alcohol Use Standard Drinks/Week Comments Yes 0 (1 standard drink = 0.6 oz pur e alcohol) Comments Unknown Sex and Gender Information Value Date Recorded Sex Assigned at Not on file 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
--- OUTSIDE RECORDS SUMMARY | 2025-05-06 15:47 | XMS_ITS | Encounter Summary ---
Author Organization [facility] Care Team Providers Care Field Captain Name Role Phone Deshawn Mariano MD Primary Care Provider [phone] Encounter Details Date Type Department Care Team (Latest Contact Info) Description 10/25/2017 Orders Only [facility] CLINCONV ProviderSang MD [address] [place] [id number] Social History Tobacco Use Types Packs/Day Years Used Date Smoking Tobacco: Former Cigarettes Q uit: 10/04/1971 Alcohol Use Standard Drinks/Week Comments Yes 0 (1 standard drink = 0.6 oz pur e alcohol) Comments Unknown Sex and Gender Information Value Date Recorded Sex Assigned at Not on file 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 Historical Provider [facility] ROSEM[facility] OLIVARES Final Result documented in this encounter Visit Diagnoses Not on filedocumented in this encounter Care Teams Field Captain Relationship Specialty Start Date End Date Deshawn Mariano MD PCP - General 01/01/17 documented as of this encounter
--- NOTE | 2025-05-06 16:23 | ED_ITS ---
HPI - General Adult General Chief complaint: Chest Pain Stated complaint: chest pain Time Seen by Provider: 05/06/25 15:24 History of Present Illness HPI narrative: 79-year-old female present to the emergency department for evaluation for right- sided chest pain that radiated up to her right shoulder did to her neck. Patient reports that she had symptoms yesterday a lasted about 30 minutes and then that the pain occurred today was/L lasted for additional 30 minutes. Patient denies any current chest pain at this time. Patient does have history of bradycardia and syncope and does have a pacemaker in place. Patient denies any prior history of coronary disease. Related Data Home Medications ?Medication ?Instructions ?Recorded ?Confirmed ?Last Taken ?Type aspirin 81 mg tablet,delayed 81 mg PO .qd 06/04/22 08/14/24 Unknown History release (Adult Aspirin Regimen) carvedilol 3.125 mg tablet (Coreg) 3.125 mg PO Q12H 06/04/22 08/14/24 Unknown History cholecalciferol (vitamin D3) 50 50 mcg PO .qd 06/04/22 08/14/24 Unknown History mcg (2,000 unit) capsule empagliflozin 10 mg tablet 10 mg PO .qd 06/04/22 08/14/24 Unknown History (Jardiance) furosemide 20 mg tablet (Lasix) 10 mg PO QAM 06/04/22 08/14/24 Unknown History sacubitril 97 mg-valsartan 103 mg 1 tablet PO BID 06/04/22 08/14/24 Unknown History tablet (Entresto) Allergies Allergy/AdvReac Type Severity Reaction Status Date / Time No Known Allergies Allergy Verified 08/14/24 12:55 Review of Systems 2 Review of Systems: All systems reviewed & are unremarkable except as noted in HPI and below [facility] Past Medical History Medical History (Updated 05/06/25 @ 18:40 by Sukhdev Gilmore MD) HTN (hypertension) Chronic combined systolic and diastolic CHF (congestive heart failure) CKD stage 3a, GFR 45-59 ml/min BMI 28.0-28.9,adult Coronary artery disease Elevated glucose Mixed hyperlipidemia Cardiomyopathy Surgical History Surgical History (Updated 05/06/25 @ 17:12 by Sophia Trejo APRN) History of cardiac pacemaker in situ H/O bilateral hip replacements Family History Family History Mother Cerebrovascular accident Family history of coronary artery disease Acute myocardial infarction Grandparent Family history of malignant neoplasm of breast Father Cancer Tobacco abuse Sibling No problems noted. 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 HEAD: normocephalic, atraumatic. EYES: PERRLA/EOMI, conjunctivae clear. NOSE: Normal no drainage EARS:TMS clear with good light reflex. THROAT: Pharynx clear, no exudate. NECK: Supple. No adenopathy, no masses. RESPIRATORY: Airway patent, respirations nonlabored. Clear to auscultation bilaterally, no rales, rhonchi, wheezing. CARDIOVASCULAR: Regular rate and rhythm without murmurs rubs or gallops. ABDOMINAL: Soft, nontender, nondistended, normal bowel sounds MUSCULOSKELETAL: Moves all extremities. Strength/ROM intact, No edema, No calf tenderness. NEURO: Alert. Cranial nerves II through XII intact. Good gait. Good coordination SKIN: Warm, dry. Normal Color Course Vital Signs Vital signs: Vital Signs Temperature 97.1 F L 05/06/25 13:26 Pulse Rate 61 05/06/25 13:26 Respiratory Rate 18 05/06/25 13:26 Blood Pressure 173/75 H 05/06/25 13:26 Pulse Oximetry 100 05/06/25 13:26 Oxygen Delivery Room Air 05/06/25 13:26 Temperature 97.1 F L 05/06/25 13:26 Pulse Rate 61 05/06/25 13:26 Respiratory Rate 18 05/06/25 13:26 Blood Pressure 173/75 H 05/06/25 13:26 Pulse Oximetry 100 05/06/25 13:26 Oxygen Delivery Room Air 05/06/25 13:26 Medical Decision Making MDM Narrative Medical decision making narrative: 79-year-old female presents emergency department for evaluation for description of unstable angina. Patient prefers to have inpatient evaluation her chest pain rather than to have outpatient follow-up. Patient is currently afebrile with no leukocytosis. Patient has no significant abnormalities on her CMP and troponin was negative. Chest x-ray shows no acute cardiopulmonary abnormality. Patient has no reproducible abdominal tenderness to palpation that be consistent abdominal pathology. Case was discussed with hospitalist patient was accepted for admission. Differential Diagnosis Differential Diagnosis: Colitis, diverticulitis, acute cholecystitis, ACS Vital Signs Vital Signs: Vital Signs Temperature 97.1 F L 05/06/25 13:26 Pulse Rate 61 05/06/25 13:26 Respiratory Rate 18 05/06/25 13:26 Blood Pressure 173/75 H 05/06/25 13:26 Pulse Oximetry 100 05/06/25 13:26 Oxygen Delivery Room Air 05/06/25 13:26 Temperature 97.1 F L 05/06/25 13:26 Pulse Rate 61 05/06/25 13:26 Respiratory Rate 18 05/06/25 13:26 Blood Pressure 173/75 H 05/06/25 13:26 Pulse Oximetry 100 05/06/25 13:26 Oxygen Delivery Room Air 05/06/25 13:26 Lab Data Lab results reviewed: Yes I reviewed the patient's lab results. 05/06/25 13:30 05/06/25 13:30 Labs: Lab Results 05/06/25 05/06/25 Range/Units 13:30 16:36 WBC 4.1 L (4.5-10.0) K/mm3 RBC 3.87 L (4.2-5.4) M/mm3 Hgb 12.7 (12.0-15.0) g/dL Hct 39.7 (37.0-47.0) % MCV 102.6 H (80-100) fl MCH 32.8 (26-34) pg MCHC 32.0 (32-36) g/dl RDW 13.6 (11.5-14.5) % Plt Count 171 (150-375) k/mm3 MPV 9.8 (7.4-10.4) fl Immature Gran % (Auto) 0.5 (0-0.5) % Neut % (Auto) 66.9 (45.5-73.1) % Lymph % (Auto) 19.3 (18.3-44.2) % [place] % (Auto) 9.6 H (2.6-8.5) % Eos % (Auto) 2.7 (0-4.4) % Baso % (Auto) 1.0 (0.2-1.2) % Lymph # (Auto) 0.78 L (0.9-3.2) K/mm3 [place] # (Auto) 0.4 (0.1-0.6) K/mm3 Eos # (Auto) 0.1 (0-0.3) K/mm3 Baso # (Auto) 0.0 (0.0-0.1) K/mm3 Abs Immat Gran (auto) 0.02 (0.00-0.031) K/mm3 Absolute Neuts (auto) 2.7 (1.3-6.7) K/mm3 Absolute Nucleated RBC 0.000 (0.0-0.012) K/mm3 Nucleated RBC % 0.0 (0.0-0.2) % PT 13.7 (11.1-14.7) Seconds INR 1.0 APTT 30.3 (22.3-36.8) Seconds Sodium 140 (137-145) mmol/L Potassium 4.1 (3.4-5.0) mmol/L Chloride 109 H (98-107) mmol/L Carbon Dioxide 25 (22-30) mmol/L Anion Gap 6 (4-12) mmol/L BUN 15 (7-17) mg/dL Creatinine 1.03 H (0.7-1.0) mg/dL Estim Creat Clear Calc 39 ml/min Estimated GFR 52 L (59 - ) Glucose 103 (65-110) mg/dL Calcium 9.2 (8.4-10.2) mg/dL Total Bilirubin 0.9 (0.2-1.3) mg/dL AST 26 (14-36) U/L ALT 22 (6-35) U/L Alkaline Phosphatase 72 (38-126) U/L Troponin I < 0.012 < 0.012 (0.000-0.034) ng/mL Total Protein 7.2 (6.3-8.2) g/dL Albumin 4.1 (3.5-5.1) g/dL Lipase 94 (23-300) U/L Imaging Data Radiologist's impression: Impressions Chest X-Ray 05/06/25 14:18 IMPRESSION: No acute cardiopulmonary process. ECG Data EKG #1: Interpretation: paced rhythm Discharge Plan Discharge Clinical Impression: Angina pectoris, unstable Patient Disposition: Still a Patient Condition: Stable Quality HEART score for chest pain patients History: moderately suspicious ECG: normal Age: > or = to 65 years Risk factors: 1 or 2 risk factors Troponin: < or = to 1x normal limit Heart score: 4
--- NOTE | 2025-05-06 16:38 | ECG_ITS ---
Test Date: 2025-05-06 16:41:49 Measurements Intervals [place] Rate: 55 P: 65 CA: 134 QRS: -78 QRSD: 144 T: 106 QT: 475 QTc: 457 Interpretive Statements ELECTRONIC ATRIAL PACEMAKER WITH INHIBITION ELECTRONIC VENTRICULAR PACEMAKER BASELINE ARTIFACT- I, II, III, AVR, AVL, AVF, V3-V6 NO SIGNIFICANT CHANGE ATYPICAL ECG Compared to ECG 05/06/2025 13:23:33 No significant changes Electronically Signed On 05-06-2025 20:25:44 CDT by Zachariah Jurado D.O.
[2025-05-06 17:07] LABS: Troponin I < 0.012 ng/mL (0.000-0.034)
--- NOTE | 2025-05-06 17:08 | PM.IMHP ---
H&P: HPI History of Present Illness Date/Time: 05/06/25 17:08 Chief Complaint: Chest Pain Narrative: 79 y/o F with PMH of nonischemic cardiomyopathy, hypertension, pacemaker, and coronary artery disease presents here with chest pain. The patient presents here with chest pain on 05/06. She states the pain began around 1 p.m. She describes the pain as right sided, sharp, radiating/wrapping around her right side into her upper back and into her jaw. She denies any accompanying nausea, vomiting, shortness of breath, or diaphoresis. Pain lasted for around 30 minutes and resolved without intervention. Pain came on while she was at rest. She reports an additional episode that lasted around 1 week ago and similar in description. Pain woke her from her sleep and pain lasted for around 15 minutes. Pain resolved without any interventions. Follows with Ralph FORTUNE with [facility] for her cardiac care. Initial VS at presentation: 97.1? F, HR 61, RR 18, 173/75, and 100% on RA. ED workup showed: WBC 4.1, no anemia, normal coags, creatinine 1.03 and GFR 52, LFTs within normal limits, troponin negative x2, lipase negative. CXR showed no acute cardiopulmonary process. Initial EKG showed atrial since electronic ventricular pacemaker per and baseline artifact. Review of Systems Review of Systems: All systems reviewed & are unremarkable except as noted in HPI and below PMFSH Past Medical History Medical History HTN (hypertension) Chronic combined systolic and diastolic CHF (congestive heart failure) CKD stage 3a, GFR 45-59 ml/min BMI 28.0-28.9,adult Coronary artery disease Elevated glucose Mixed hyperlipidemia Cardiomyopathy Surgical History Surgical History History of cardiac pacemaker in situ H/O bilateral hip replacements Family History Family History Mother Cerebrovascular accident Family history of coronary artery disease Acute myocardial infarction Grandparent Family history of malignant neoplasm of breast Father Cancer Tobacco abuse Sibling No problems noted. Social History Social History Smoking packs per day: 1 Smoking cigarettes per day: 20.0 Years smoked: 6 Smoking pack-years: 6.00 Smoking status: Former smoker Second hand tobacco smoke exposure: No Alcohol intake: never Substance use: never Substance use type: does not use Do You Feel Safe in your Home?: Yes Lack of Transportation: No Lack of Food: Never True Current Housing: I Have Housing Concerned About Future Housing: No Difficulty Paying Gas/Electric Bills: No Difficulty Paying for Meds: No Currently Unemployed: No Education: Associate Degree Difficulty w/ Childcare or Family Care: No Living arrangements: with family Occupation/Education: retired 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 Gender identity (if verbalized by the patient): Female Spiritual care concerns: No Meds Home Medications and Allergies Home Medications ?Medication ?Instructions ?Recorded ?Confirmed ?Type aspirin 81 mg tablet,delayed 81 mg PO DAILY 06/04/22 05/06/25 History release (Adult Aspirin Regimen) cholecalciferol (vitamin D3) 50 50 mcg PO DAILY 06/04/22 05/06/25 History mcg (2,000 unit) capsule empagliflozin 10 mg tablet 10 mg PO DAILY 06/04/22 05/06/25 History (Jardiance) furosemide 20 mg tablet (Lasix) 20 mg PO EVERY OTHER DAY 06/04/22 05/06/25 History sacubitril 97 mg-valsartan 103 mg 1 tablet PO BID 06/04/22 05/06/25 History tablet (Entresto) levothyroxine 50 mcg tablet 50 mcg PO DAILY #90 tabs 05/22/24 05/06/25 Rx (Synthroid) rosuvastatin 40 mg tablet 40 mg PO DAILY #90 tabs 07/17/24 05/06/25 Rx carvedilol 6.25 mg tablet 6.25 mg PO Q12H 05/06/25 05/06/25 History Allergies Allergy/AdvReac Type Severity Reaction Status Date / Time No Known Allergies Allergy Verified 05/06/25 21:04 Vital Signs Vital Signs - 24 hr 05/06/25 13:26 Temperature 97.1 F L Pulse Rate 61 Respiratory Rate 18 Blood Pressure 173/75 H Pulse Oximetry 100 Oxygen Delivery Room Air Exam Const: General: comfortable and no acute distress Other: , female, elderly, nontoxic appearance HENMT: Face/Nose/Sinus: Normal nares present Mouth: Yes moist mucous membranes Eyes: General: appearance normal, both eyes and all related structures Sclera: sclerae normal Pupils: Equal, round and reactive pupils present EOM: EOMs intact bilaterally Resp: Effort & Inspection: normal respiratory effort Auscultation: clear to auscultation bilaterally Cardio: Rate: regular rate Rhythm: regular rhythm Other: S1-S2 present without murmur, rub, ectopy GI: Other: Abdomen soft, nondistended, nontender. Normoactive bowel sounds in all quadrants. Skin: General skin exam: normal color and no rashes or lesions noted Wounds: no wounds Neuro: Speech: normal speech Motor exam (neuro): 5/5 motor strength present throughout Sensory Exam: normal sensation Other: A&O x4 Extrem: General: normal to inspection Psych: Mental Status: mental status grossly normal Affect: normal affect Other: Good insight and judgment, pleasant. Reporting excessive stress. H&P: Results Labs Labs: Short CBC 05/06/25 Range/Units 13:30 WBC 4.1 L (4.5-10.0) K/mm3 Hgb 12.7 (12.0-15.0) g/dL Hct 39.7 (37.0-47.0) % Plt Count 171 (150-375) k/mm3 BMP 05/06/25 13:30 Sodium 140 Potassium 4.1 Chloride 109 H Carbon Dioxide 25 BUN 15 Creatinine 1.03 H Glucose 103 Calcium 9.2 Cardiac Enzymes 05/06/25 05/06/25 Range/Units 13:30 16:36 Troponin I < 0.012 < 0.012 (0.000-0.034) ng/mL Liver Function 05/06/25 Range/Units 13:30 Total Bilirubin 0.9 (0.2-1.3) mg/dL AST 26 (14-36) U/L ALT 22 (6-35) U/L Alkaline Phosphatase 72 (38-126) U/L Albumin 4.1 (3.5-5.1) g/dL Assessment and Plan Assessment and plan (1) Chest pain: Qualifiers: Chest pain type: unspecified Qualified Code(s): R07.9 - Chest pain, unspecified Code(s): R07.9 - Chest pain, unspecified Status: Acute Assessment and Plan: - EKG, initial: Atrial since electronic ventricular pacemaker, baseline artifact. - EKG, repeat (1): Electronic ventricular pacemaker - CXR: No acute cardiopulmonary process - Troponin: <0.012 x2, 6 hr pending - ASA 324 -> 81 daily - SL nitro PRN - reviewed most recent cardiology note from 02/22/2025, Ino FORTUNE. Patient is currently on Carvedilol, Entresto, and Jardiance for not of ischemic cardiomyopathy, hypertension, and chronic combined systolic/diastolic congestive heart failure. She last underwent a ENRICO in February of 2022 which showed an EF of 50-55%, normal RV function, diastolic dysfunction. Lexiscan stress test in March of 2022 showed a moderate-sized complete reversible anterior wall and small partially reversible inferior wall perfusion defect. Cardiac catheterization last completed in April of 2022 which showed mild nonocclusive coronary artery disease. - cardiology consulted - telemetry monitoring Differential includes ACS, costochondritis, and gallstones. No overt tenderness to the right upper quadrant or chest wall decreasing concerns for costochondritis or gallstones. No abnormality noted to LFTs. Patient has known coronary artery disease previously seen on a cardiac catheterization increasing concerns for unstable angina. (2) Chronic combined systolic and diastolic CHF (congestive heart failure): Code(s): I50.42 - Chronic combined systolic (congestive) and diastolic (congestive) heart failure Status: Chronic Assessment and Plan: - continue Carvedilol, Entresto, Jardiance - most recent echo per her outpatient cardiology note in February of 2022, see impression above - no current evidence of exacerbation (3) HTN (hypertension): Qualifiers: Hypertension type: primary hypertension Qualified Code(s): I10 - Essential (primary) hypertension Code(s): I10 - Essential (primary) hypertension Status: Chronic Assessment and Plan: - chronic, currently 173/75 - continue home medications: Coreg, Lasix, Entresto - monitor Plan Diet: Heart healthy GI Prophylaxis: n/a DVT Prophylaxis: SCDs IV fluids: None Lines/Tubes: Peripheral IV Code Status: Full code Quality VTE Prophylaxis VTE prophylaxis: mechanical ordered Hospitalist MIPS Advance Care Plan I have confirmed that the patient's Advanced Care Plan is present, code status is documented, or surrogate decision maker is listed in patient medical record.: Yes Medication Reconciliation I have utilized all available resources to obtain, update and review the patients current medications (includes all prescriptions, OTC, herbals, cannabis, and nutritional supplements).: Yes
--- NOTE | 2025-05-06 20:40 | PC.NURSE ---
This patient, Josefa Christianson [facility], was admitted to IMU Room 211-01. Patient/family oriented to hospital policies and general routines including ID bracelet, bed and alarms, visiting hours, pain management, procedures, bathroom and other care routines, personal items, smoking policy, room service/diet, and visiting hours. Information on how to activate the Rapid Response Team has been discussed. Patient/Family are encouraged to report perceived risks to care and to ask questions if they do not understand what they are told or what they should do.
[2025-05-06 20:58] VITALS: BMI 29.9
[2025-05-06 21:26] VITALS: BP 176/69; PULSE 92; RESP 18; TEMP 37; O2SAT 100
[2025-05-06 22:00] VITALS: PULSE 60
[2025-05-06 22:59] VITALS: PULSE 67
[2025-05-06] MEDS: SACUBITRIL/VALSARTAN 97-103 MG TABLET 1 TAB PO (22:59)
[2025-05-06 23:18] LABS: Troponin I < 0.012 ng/mL (0.000-0.034)
[2025-05-06 23:52] VITALS: BP 156/65; PULSE 68; RESP 18; TEMP 36.5; O2SAT 100
[2025-05-07] VITALS (10 sets, daily range): BP systolic 146–180; BP diastolic 66–84; PULSE 54–70; RESP 16–18; TEMP 36.4–36.6; O2SAT 99–100
[2025-05-07 04:36] LABS: Hematocrit 39.4 % (37.0-47.0); Hemoglobin 12.7 g/dL (12.0-15.0); Immature Granulocyte Percent A 0.3 % (0-0.5); Lymphocytes Absolute Auto 0.89 K/mm3 (0.9-3.2); Mean Corpuscular HGB Conc 32.2 g/dl (32-36); Mean Corpuscular Hemoglobin 32.7 pg (26-34); Mean Corpuscular Volume 101.5 fl (80-100); Nucleated Red Blood Cells Absolute Auto 0.000 K/mm3 (0.0-0.012); Nucleated Red Blood Cells Perc 0.0 % (0.0-0.2); Platelet Count Result 157 k/mm3 (150-375); Red Blood Count 3.88 M/mm3 (4.2-5.4); White Blood Count 3.4 K/mm3 (4.5-10.0)
[2025-05-07 05:18] LABS: Anion Gap 5 mmol/L (4-12); Blood Urea Nitrogen 12 mg/dL (7-17); Calcium 9.3 mg/dL (8.4-10.2); Carbon Dioxide 26 mmol/L (22-30); Chloride 110 mmol/L (98-107); Estimated CRCL calculation 50 ml/min; Estimated Glomerular Filt Rate 58; Glucose 98 mg/dL (65-110); Potassium 4.4 mmol/L (3.4-5.0); Sodium 141 mmol/L (137-145)
[2025-05-07] MEDS: LEVOTHYROXINE SODIUM 50 MCG TABLET PO (06:19)
--- NOTE | 2025-05-07 08:22 | PM.CNCAR ---
Assessment and Plan Assessment and plan (1) Chest pain: Qualifiers: Chest pain type: unspecified Qualified Code(s): R07.9 - Chest pain, unspecified Code(s): R07.9 - Chest pain, unspecified Status: Acute Assessment and Plan: She is not having chest pain. She has pain in her right ribs/flank radiating to her upper back. No anterior, substernal, or epigastric pain. No other associated symptoms. Troponin negative x3. I do not suspect that her discomfort is secondary to a cardiac etiology. Recommend workup for noncardiac pain per hospitalist. Cardiology will sign off. Please call with questions. (2) Coronary artery disease: Qualifiers: Coronary Disease-Associated Artery/Lesion type: [place] artery [place] vs. transplanted heart: [place] heart Associated angina: without angina Qualified Code(s): I25.10 - Atherosclerotic heart disease of [place] coronary artery without angina pectoris Code(s): I25.10 - Atherosclerotic heart disease of [place] coronary artery without angina pectoris Status: Acute Assessment and Plan: Mild, nonobstructive coronary artery disease by left heart catheterization in 2021. Continue aspirin, statin. (3) Chronic combined systolic and diastolic CHF (congestive heart failure): Code(s): I50.42 - Chronic combined systolic (congestive) and diastolic (congestive) heart failure Status: Chronic Assessment and Plan: Appears to be well compensated. Continue current medical regimen without change including Entresto, Jardiance, Coreg (4) HTN (hypertension): Qualifiers: Hypertension type: primary hypertension Qualified Code(s): I10 - Essential (primary) hypertension Code(s): I10 - Essential (primary) hypertension Status: Chronic Assessment and Plan: Blood pressure is above goal. Add amlodipine 5 mg daily. (5) Cardiomyopathy: Qualifiers: Cardiomyopathy type: unspecified Qualified Code(s): I42.9 - Cardiomyopathy, unspecified Code(s): I42.9 - Cardiomyopathy, unspecified Status: Acute Assessment and Plan: EF has recovered, 50-55%. History of Present Illness History of Present Illness Consult date/time: 05/07/25 08:22 Requesting physician: Sophia Trejo APRN Consult reason: chest pain Reason For Visit: chest pain,unstable angina Narrative: Josefa Collins is a 79 year old female with heart failure with recovered ejection fraction (LVEF 50-55%, previously 25-30%, [employer] responder), complete heart block with [employer] AIRCRAFT [employer]OR [employer]CH[employer]IC P and plays, implant 2006 [facility], did not change 2015), and mild, nonobstructive coronary artery disease ([facility] 2021). This is a patient who presents to the hospital with a chief complaint of pain in her ribs/flank area. Patient describes 2 episodes of pain in her right flank that radiated to her back and between her shoulders. First episode woke her from sleep during later part of last week. Yesterday, she was sitting at the intermediate with her and experienced this pain again. The discomfort eventually did subside and has not returned. She denies any shortness of breath, palpitations, swelling, orthopnea, syncope. Review of Systems Review of Systems: All systems reviewed & are unremarkable except as noted in HPI and below PMFSH Past Medical History Medical History HTN (hypertension) Chronic combined systolic and diastolic CHF (congestive heart failure) CKD stage 3a, GFR 45-59 ml/min BMI 28.0-28.9,adult Coronary artery disease Elevated glucose Mixed hyperlipidemia Cardiomyopathy Surgical History Surgical History History of cardiac pacemaker in situ H/O bilateral hip replacements Family History Family History Mother Cerebrovascular accident Family history of coronary artery disease Acute myocardial infarction Grandparent Family history of malignant neoplasm of breast Father Cancer Tobacco abuse Sibling No problems noted. Social History Social History Smoking packs per day: 1 Smoking cigarettes per day: 20.0 Years smoked: 6 Smoking pack-years: 6.00 Smoking status: Former smoker Second hand tobacco smoke exposure: No Alcohol intake: never Substance use: never Substance use type: does not use Do You Feel Safe in your Home?: Yes Lack of Transportation: No Lack of Food: Never True Current Housing: I Have Housing Concerned About Future Housing: No Difficulty Paying Gas/Electric Bills: No Difficulty Paying for Meds: No Currently Unemployed: No Education: Associate Degree Difficulty w/ Childcare or Family Care: No Living arrangements: with family Occupation/Education: retired 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 Gender identity (if verbalized by the patient): Female Spiritual care concerns: No Meds Home Medications and Allergies Home Medications ?Medication ?Instructions ?Recorded ?Confirmed ?Type aspirin 81 mg tablet,delayed 81 mg PO DAILY 06/04/22 05/06/25 History release (Adult Aspirin Regimen) cholecalciferol (vitamin D3) 50 50 mcg PO DAILY 06/04/22 05/06/25 History mcg (2,000 unit) capsule empagliflozin 10 mg tablet 10 mg PO DAILY 06/04/22 05/06/25 History (Jardiance) furosemide 20 mg tablet (Lasix) 20 mg PO EVERY OTHER DAY 06/04/22 05/06/25 History sacubitril 97 mg-valsartan 103 mg 1 tablet PO BID 06/04/22 05/06/25 History tablet (Entresto) levothyroxine 50 mcg tablet 50 mcg PO DAILY #90 tabs 05/22/24 05/06/25 Rx (Synthroid) rosuvastatin 40 mg tablet 40 mg PO DAILY #90 tabs 07/17/24 05/06/25 Rx carvedilol 6.25 mg tablet 6.25 mg PO Q12H 05/06/25 05/06/25 History Allergies Allergy/AdvReac Type Severity Reaction Status Date / Time No Known Allergies Allergy Verified 05/06/25 21:04 Vital Signs Vital Signs - 24 hr 05/06/25 13:26 05/06/25 20:18 05/06/25 21:26 Temperature 36.2 C L 37.0 C Pulse Rate 61 92 Respiratory Rate 18 18 Blood Pressure 173/75 H 176/69 H Pulse Oximetry 100 100 Oxygen Delivery Room Air Room Air 05/06/25 21:47 05/06/25 22:00 05/06/25 22:59 Temperature Pulse Rate 60 67 Respiratory Rate Blood Pressure Pulse Oximetry Oxygen Delivery Room Air 05/06/25 23:37 05/06/25 23:52 05/07/25 00:00 Temperature 36.5 C Pulse Rate 68 69 Respiratory Rate 18 Blood Pressure 156/65 H Pulse Oximetry 100 Oxygen Delivery Room Air 05/07/25 02:00 05/07/25 03:54 05/07/25 04:00 Temperature 36.5 C Pulse Rate 64 54 L Respiratory Rate 18 Blood Pressure 146/66 H Pulse Oximetry 99 Oxygen Delivery Room Air 05/07/25 04:00 05/07/25 05:58 05/07/25 07:51 Temperature 36.4 C Pulse Rate 56 L 64 64 Respiratory Rate 18 Blood Pressure 180/84 H Pulse Oximetry 99 Oxygen Delivery Exam Const: General: comfortable, no acute distress, alert and awake Orientation/consciousness: patient oriented x3 HENMT: Head: normal to inspection Eyes: General: appearance normal, both eyes and all related structures Pupils: Equal, round and reactive pupils present Neck: Neck: normal visual inspection, supple and no JVD Carotids: normal carotid upstroke Resp: Effort & Inspection: normal respiratory effort Auscultation: clear to auscultation bilaterally Cardio: Rate: regular rate Rhythm: regular rhythm Heart sounds: S1 normal heart sound present, S2 normal heart sound present and no murmurs GI: Auscultation: normal bowel sounds Skin: General skin exam: normal color Neuro: General: patient oriented x3 Cranial nerves: Yes Equal, round and reactive pupils present Extrem: General: normal to inspection Psych: Appearance: grossly normal Mental Status: mental status grossly normal Results Labs and Meds 05/07/25 03:57 05/07/25 03:57 Lab results: Cardiac Enzymes 05/06/25 05/06/25 05/06/25 Range/Units 13:30 16:36 22:50 AST 26 (14-36) U/L Troponin I < 0.012 < 0.012 < 0.012 (0.000-0.034) ng/mL Coagulation 05/06/25 Range/Units 13:30 PT 13.7 (11.1-14.7) Seconds APTT 30.3 (22.3-36.8) Seconds CBC 05/06/25 05/07/25 Range/Units 13:30 03:57 WBC 4.1 L 3.4 L (4.5-10.0) K/mm3 RBC 3.87 L 3.88 L (4.2-5.4) M/mm3 Hgb 12.7 12.7 (12.0-15.0) g/dL Hct 39.7 39.4 (37.0-47.0) % Plt Count 171 157 (150-375) k/mm3 Lymph # (Auto) 0.78 L 0.89 L (0.9-3.2) K/mm3 [place] # (Auto) 0.4 0.5 (0.1-0.6) K/mm3 Eos # (Auto) 0.1 0.1 (0-0.3) K/mm3 Baso # (Auto) 0.0 0.1 (0.0-0.1) K/mm3 Comprehensive Metabolic Panel 05/06/25 05/07/25 Range/Units 13:30 03:57 Sodium 140 141 (137-145) mmol/L Potassium 4.1 4.4 (3.4-5.0) mmol/L Chloride 109 H 110 H (98-107) mmol/L Carbon Dioxide 25 26 (22-30) mmol/L BUN 15 12 (7-17) mg/dL Creatinine 1.03 H 0.94 (0.7-1.0) mg/dL Glucose 103 98 (65-110) mg/dL Calcium 9.2 9.3 (8.4-10.2) mg/dL AST 26 (14-36) U/L ALT 22 (6-35) U/L Alkaline Phosphatase 72 (38-126) U/L Total Protein 7.2 (6.3-8.2) g/dL Albumin 4.1 (3.5-5.1) g/dL Intake and Output 05/06/25 05/07/25 05/07/25 23:59 07:59 15:59 Intake Total 222 Output Total 1600 Balance -1378 Intake: Oral 222 Output: Urine 1600 Other: # Unmeasured Voids 1 Patient Weight 05/07/25 23:59 Weight 86.4 kg
[2025-05-07] MEDS: ASPIRIN 81 MG CHEWABLE TABLET PO (10:03)
[2025-05-07] MEDS: ROSUVASTATIN 20 MG TABLET 40 MG PO (10:03)
[2025-05-07] MEDS: EMPAGLIFLOZIN 10 MG TABLET PO (10:03)
[2025-05-07] MEDS: CHOLECALCIFEROL (VITAMIN D3) 25 MCG (1,000 UNITS) TABLET 50 MCG PO (10:03)
[2025-05-07] MEDS: FUROSEMIDE 20 MG TABLET PO (10:04)
[2025-05-07] MEDS: SACUBITRIL/VALSARTAN 97-103 MG TABLET 1 TAB PO (10:04)
--- NOTE | 2025-05-07 14:44 | P.DS_ITS ---
DS: Admitting Diagnosis Discharge Date 05/07/2025 Admitting Diagnosis Rib pain DS: Discharge Diagnosis Discharge Diagnosis (1) Rib pain: Code(s): R07.81 - Pleurodynia Status: Acute DS: Summary Hospital Course Hospital Course: Patient presented with rib pain. No acute coronary syndrome. Her pain resolved spontaneously. She reports the pain is easily resolved with Tylenol. Advised to try that if she has pain again. Cardiology added amlodipine for hypertension. Patient is discharged home in stable condition. Time Spent with Patient Time attestation: Total time spent providing and/or coordinating discharge services: Time spent: Greater than 30 minutes Exam Const: General: comfortable Eyes: Pupils: Equal, round and reactive pupils present Neck: Neck: supple Resp: Effort & Inspection: normal respiratory effort Cardio: Rate: regular rate Rhythm: regular rhythm GI: GI Palp: Yes Soft to palpation Extrem: General: no edema DS: Data Data Completed and Pending Labs on day of discharge: Labs from last 24 hours 05/07/25 05/06/25 05/06/25 03:57 22:50 16:36 WBC 3.4 L RBC 3.88 L Hgb 12.7 Hct 39.4 MCV 101.5 H MCH 32.7 MCHC 32.2 RDW 13.3 Plt Count 157 MPV 9.9 Immature Gran % (Auto) 0.3 Neut % (Auto) 55.1 Lymph % (Auto) 26.1 [place] % (Auto) 13.2 H Eos % (Auto) 3.8 Baso % (Auto) 1.5 H Lymph # (Auto) 0.89 L [place] # (Auto) 0.5 Eos # (Auto) 0.1 Baso # (Auto) 0.1 Abs Immat Gran (auto) 0.01 Absolute Neuts (auto) 1.9 Absolute Nucleated RBC 0.000 Nucleated RBC % 0.0 Sodium 141 Potassium 4.4 Chloride 110 H Carbon Dioxide 26 Anion Gap 5 BUN 12 Creatinine 0.94 Estim Creat Clear Calc 50 Estimated GFR 58 L Glucose 98 Calcium 9.3 Troponin I < 0.012 < 0.012 Discharge Plan Discharge Attending physician on discharge: Radha Gonzalez Consulting providers: Casie Sheikh Discharging Clinician: Radha Gonzalez Patient Disposition: Home Activity: may shower Diet: heart healthy Patient Instructions: Heart Failure (DC), Chest Pain (DC) Patient Language: British Stand Alone Forms: General Discharge Information Follow-up/Referrals: Deshawn Mariano MD [Primary Care Provider] - Discharge Medications: New amlodipine [Norvasc] 5 mg Tablet 5 mg PO DAILY Qty: 30 0RF Continued Jardiance 10 mg tablet 10 mg PO DAILY aspirin [Adult Aspirin Regimen] 81 mg tablet,delayed release (DR/EC) 81 mg PO DAILY cholecalciferol (vitamin D3) 50 mcg (2,000 unit) capsule 50 mcg PO DAILY furosemide [Lasix] 20 mg tablet 20 mg PO EVERY OTHER DAY Entresto 97-103 mg tablet 1 tablet PO BID carvedilol 6.25 mg tablet 6.25 mg PO Q12H levothyroxine [Synthroid] 50 mcg tablet 50 mcg PO DAILY Qty: 90 3RF rosuvastatin 40 mg tablet 40 mg PO DAILY Qty: 90 0RF Date of admission: 05/06/25 16:44 Primary Care Provider: Deshawn Mariano Admitting Provider: Lenin Richardson Attending physician on admission: Lenin Richardson Condition: Stable Hospitalist MIPS Heart Failure (Exclusion) Patient has history of Heart Transplant or Left Ventricular Assistive Device?: No IF YES, STOP HERE Heart Failure (Qualifier) Patient has current or prior documentation of LVEF less than or equal to 40%, or mod/servere depressed LVSF?: No IF NO, STOP HERE
== END 2025-05-07 15:00 | disposition home or self-care (01) ==
LOC: ANHED 15:45 → ANHIMU 18:40
PROVIDERS: Student in an Organized Health Care Education/Training Program; Admitting Provider General Practice; Emergency Provider Emergency Medicine; PCP Family Medicine; Visit Provider General Practice
DX: R07.81 Pleurodynia (principal); I13.0 Hypertensive heart and chronic kidney disease with heart failure and stage 1 through stage 4 chronic kidney disease, or unspecified chronic kidney disease; I50.42 Chronic combined systolic (congestive) and diastolic (congestive) heart failure; N18.31 Chronic kidney disease, stage 3a; I25.10 Atherosclerotic heart disease of native coronary artery without angina pectoris; E78.2 Mixed hyperlipidemia; I42.9 Cardiomyopathy, unspecified; Z95.0 Presence of cardiac pacemaker; Z79.82 Long term (current) use of aspirin; Z79.84 Long term (current) use of oral hypoglycemic drugs; Z87.891 Personal history of nicotine dependence
CPT/HCPCS: 36415; 71046; 80048; 80053; 83690; 84484; 85025; 85610; 85730; 93005; 99285; A9270; G0378